=== PATIENT | male | born 1935 | race Caucasian/White ===

== ENCOUNTER 2017-12-29 09:35 | Outpatient (CLI) | payer MEDICARE, BC ==
[2017-12-29] VITALS (19 sets, daily range): BP systolic 99–141; BP diastolic 60–93
[~2017-12-29 09:35] MED LIST: ASPI-611 PO; ATOR20TA66 PO; CHOL100046 PO; DEXL60CA3 PO; FERR324T7 PO; FLO0.4C PO; FOLI1TAB16 PO; SULF1TAB49 PO; VITA1TAB20 PO
== END 2017-12-29 23:59 | disposition home or self-care (01) ==
LOC: CARD DIAG 09:35
PROVIDERS: ATTEND Internal Medicine Interventional Cardiology
DX: R42 Dizziness and giddiness (principal)
CPT/HCPCS: 93660